=== PATIENT | female | born 1950 | race Caucasian/White ===

== ENCOUNTER → 2022-05-22 | Outpatient (CLI) | payer MEDICARE | LOC: MRI 08:03 → HEART 5 08:03 → MRI 08:30 | DX: G45.8 Other transient cerebral ischemic attacks and related syndromes (principal); G31.9 Degenerative disease of nervous system, unspecified; I51.89 Other ill-defined heart diseases | CPT/HCPCS: ECHO; 70551; 93306; 93880 ==